=== PATIENT | female | born 1975 | race Caucasian/White ===

== ENCOUNTER → 2021-06-09 13:16 | Outpatient (CLI) | payer BC, SELFPAY ==
--- NOTE | 2021-06-09 13:23 | BI_ITS ---
MAMMOGRAPHY - BILATERAL SCREENING REASON FOR EXAM: Female, 45 years old. Routine annual screening examination. PERTINENT HISTORY: Grandmother with breast cancer. TECHNIQUE: Digital bilateral breast alex (3D mammographic acquisition) in the CC and MLO projections. 2-D mediolateral oblique (MLO) and craniocaudad (CC) views of both breasts were obtained. CAD: Full Field Digital Mammography with Computer Added Detection was performed. COMPARISON: Comparison is made with prior outside study dated 07/05/2020. FINDINGS: Breast Composition: There are scattered areas of fibroglandular density. There are no dominant masses or suspicious calcifications. Stable 1.6 cm x 0.6 cm linear nodular density in the deep central medial aspect of the right breast. Correlation with ultrasound is recommended. No other significant abnormalities are identified. BI/SCRN MAMM (CAD)W/ALEX BILAT IMPRESSION: 1.6 cm x 0.6 cm linear nodular density in the deep central and medial aspect of the right breast. Correlation with ultrasound is recommended. ASSESSMENT CATEGORY: BIRADS Category 0: Incomplete. Need additional imaging evaluation. A letter regarding these results will be sent to the patient by the facility within 30 days. Approximately 10% of breast cancers are not detected by mammography. A normal mammogram should not delay biopsy of a clinically suspicious abnormality. [id number] Electronically Signed: Julio Perez MD at 15:02 EST , Service support ,
== END ==
PROVIDERS: PCP Family Medicine
DX: Z12.31 Encounter for screening mammogram for malignant neoplasm of breast (principal)
CPT/HCPCS: 77063; 77067

== ENCOUNTER → 2021-06-28 15:04 | Outpatient (CLI) | payer BC, SELFPAY ==
--- NOTE | 2021-06-28 15:07 | US_ITS ---
STUDY: ULTRASOUND BREAST - RIGHT REASON FOR EXAM: Female, 45 years old. Abnormal screening mammogram. TECHNIQUE: Axial and longitudinal images of the RIGHT breast were performed with a high resolution ultrasound transducer. # OF IMAGES: 25 COMPARISON: Comparison is made with prior mammogram dated 06/09/2021. FINDINGS: RIGHT Breast: There is a 7 mm x 13 mm x 5 mm hypoechoic solid nodule at the 2 o''clock position of the breast at 10 cm from nipple. Biopsy is recommended. Dilated retroareolar duct. US/Breast Limited Unilateral IMPRESSION: 7 mm x 15 mm x 5 mm hypoechoic nodule at the 2 o''clock position in the breast at 10 cm from nipple. Biopsy is recommended. Dilated retroareolar duct. ASSESSMENT CATEGORY: BIRADS Category 4: Suspicious - Biopsy Should Be Considered. A letter regarding these results will be sent to the patient by the facility within 30 days. Electronically Signed: Julio Perez MD at 15:10 EST , Service support ,
== END ==
PROVIDERS: PCP Family Medicine
DX: R92.8 Other abnormal and inconclusive findings on diagnostic imaging of breast (principal)
CPT/HCPCS: 76642

== ENCOUNTER → 2021-07-12 10:29 | Outpatient (CLI) | payer BC, SELFPAY ==
--- NOTE | 2021-07-12 | BRBX_PTH ---
PATIENT: DAVY REED LOC: [facility]#:[id number] AGE/SX: 49/F ROOM: RE07/12/[address]: Dr. Yakelin Bergeron MD : 1975 BED: DIS: SPEC #: [id number] RECD: 07/12/21 13:08 STATUS: KEISHA RYDER #: [id number] POOL: 07/12/21 00:[address]: Yakelin Bergeron DEPT: SURGICAL PATHOLOGY RECD BY: Panchito Bauman ENTERED: 07/12/21 13:09 SP TYPE: BREAST BX OTHR DR: Dr. Frederick Griffin MD Tissues: Right breast, NOS Procedures: Surgery Specimen Level IV HEADER OPERATION: Right breast biopsy PRE-OP DIAGNOSIS: Right breast lesion TISSUE SUBMITTED: Right breast 2 o?clock, 10 cm from nipple MICROSCOPIC DIAGNOSIS Right breast at 2 o?clock, biopsy: Fibroadenoma. AM:cristopher 07/13/2021 MICROSCOPIC DESCRIPTION Slides are reviewed. GROSS DESCRIPTION Received in fixative is one container labeled with the patient's name and designated right breast lesion. The specimen consists of multiple irregular fragments of light shepard-yellow tissue that in aggregate measure 2.5 x 1.5 x 0.2 cm. The specimen is totally submitted in one cassette. / AM:cristopher 07/12/21 TC:5 CPT: 02021
--- NOTE | 2021-07-12 10:30 | US_ITS ---
ULTRASOUND GUIDED CORE BIOPSY REASON FOR EXAM: Female, 45 years old. Abnormal breast us COMPARISON: Comparison is made with prior sonogram of the right breast dated 06/28/2021. TECHNIQUE: (All elements of maximal sterile barrier technique followed, including US elements as applicable) Under direct sonographic guidance, the surgeon performed core biopsies of the 7 mm x 10 mm x 5 mm hypoechoic solid nodule at the 2 o''clock position of the breast at 10 cm from nipple. US/US Breast Biopsy 1st Lesion IMPRESSION: Ultrasound guided core biopsy of a mass in the RIGHT breast at 2 o''clock position of the breast at 10 cm from the nipple without complication. Electronically Signed: Julio Perez MD at 12:25 EST , Service support ,
--- NOTE | 2021-07-12 11:25 | PCM.OPRPT ---
Report of Operation Date of Procedure: 07/12/21 Pre-Operative Diagnosis: Right breast mass Post-Operative Diagnosis: Same Surgery/Procedure Performed:: Right breast ultrasound-guided biopsy Surgeon: Yakelin Bergeron Specimen's removed: Right breast mass 2:00 10 cm from the nipple Estimated Blood Loss (mL): Minimal Description of Procedure: Procedure: Right ultrasound-guided core biopsy Indications: 45 year-old female with the hypoechoic solid nodule at 2:00 in the right breast 10 cm from the nipple. Risk benefits were discussed the patient and she elected to proceed with ultrasound guided core biopsy with clip placement Description of procedure: Patient was brought into the ultrasound room in the right breast was marked. A timeout was completed verifying correct patient, procedure, site, specially, prior to beginning procedure. The right breast was prepped and draped in usual sterile fashion and using local anesthesia was obtained with 1% lidocaine with epi. The lesion was located with the ultrasound. Small incision was made with 11 blade to introduced the mammotome through the skin. Under ultrasound guidance multiple core samples were obtained using then 13-gauge mammotome and sent in formalin for pathology. The mammotome mammostar clip was then deployed into the biopsy cavity under ultrasound guidance and a picture was taken. Upon completion procedure hemostasis was obtained and a Steri-Strip and OpSite were placed. Patient was then taken to the mammography suite for clip verification. The clip was verified. The patient tolerated the procedure well and was discharged from the breast imaging department good condition. Complications none
== END ==
PROVIDERS: PCP Family Medicine; Referring Provider Surgery; Visit Provider Surgery
DX: N63.10 Unspecified lump in the right breast, unspecified quadrant (principal)
CPT/HCPCS: 19083; 88305

== ENCOUNTER 2021-08-24 09:48 | Outpatient (CLI) | payer BC, SELFPAY ==
[2021-08-29 21:48] LABS: HPV APTIMA, High Risk Negative (Negative)
== END 2021-08-24 23:59 | disposition short-term general hospital (02) ==
LOC: LABSPEC 08-25 09:49
PROVIDERS: PCP Family Medicine; Visit Provider Nurse Practitioner Women's Health
DX: Z01.419 Encounter for gynecological examination (general) (routine) without abnormal findings (principal)
CPT/HCPCS: 87624; 88175; G0145

== ENCOUNTER → 2022-09-13 | Outpatient (CLI) | payer BC, SELFPAY ==
--- NOTE | 2022-09-13 14:35 | BI_ITS ---
MAMMOGRAPHY - BILATERAL SCREENING REASON FOR EXAM: Female, 47 years old. Routine annual screening examination. PERTINENT HISTORY: Grandmother with breast cancer. Prior right ultrasound guided breast biopsy. TECHNIQUE: Digital bilateral breast alex (3D mammographic acquisition) in the CC and MLO projections. 2-D mediolateral oblique (MLO) and craniocaudad (CC) views of both breasts were obtained. CAD: Full Field Digital Mammography with Computer Added Detection was performed. COMPARISON: Comparison is made with prior study 06/09/2021. FINDINGS: Breast Composition: There are scattered areas of fibroglandular density. There are no dominant masses or suspicious calcifications. Stable asymmetry of breast tissue or minimal breast tissue is seen in the upper outer quadrant of the right breast as compared to the left side. Stable 1.6 cm x 0.6 cm linear nodular density in the deep central medial aspect of the right breast. A tissue clip marker is seen within. No other significant abnormalities are identified. There has been no significant change since the prior study. BI/SCRN MAMM (CAD)W/ALEX BILAT IMPRESSION: Stable bilateral screening mammogram. Yearly follow-up mammogram recommended. (A) ASSESSMENT CATEGORY: BIRADS Category 2: Benign. A letter regarding these results will be sent to the patient by the facility within 30 days. Approximately 10% of breast cancers are not detected by mammography. A normal mammogram should not delay biopsy of a clinically suspicious abnormality. [id number] Electronically Signed: Julio Perez MD at 15:26 EST ,
== END | disposition home or self-care (01) ==
PROVIDERS: PCP Family Medicine; Referring Provider Nurse Practitioner Women's Health; Visit Provider Nurse Practitioner Women's Health
DX: Z12.31 Encounter for screening mammogram for malignant neoplasm of breast (principal)
CPT/HCPCS: 77063; 77067

== ENCOUNTER → 2023-12-17 | Outpatient (CLI) | payer BC, SELFPAY ==
--- NOTE | 2023-12-17 14:08 | BI_ITS ---
MAMMOGRAPHY - BILATERAL SCREENING 3-D TOMOSYNTHESIS REASON FOR EXAM: Female, 48 years old. SCREENING PERTINENT HISTORY: No significant family history. TECHNIQUE: 2-D mammograms and 3-D Tomosynthesis of the breast (s) were performed. CAD was performed. COMPARISON: 10/11/2022 FINDINGS: The breast composition is composed of scattered fibroglandular density. Scattered benign calcifications are seen. No dense spiculated masses or suspicious microcalcifications are identified. No architectural distortion is identified. There is no skin thickening or retraction. There has been no significant change since the prior study. BI/SCRN MAMM (CAD)W/LAEX BILAT IMPRESSION: No mammographic signs of malignancy. Routine yearly mammograms recommended. ASSESSMENT CATEGORY: BIRADS Category 1: Negative. A letter regarding these results will be sent to the patient by the facility within 30 days. FOLLOW UP RECOMMENDATION: Yearly follow up mammogram recommended. (A) Approximately 10% of breast cancers are not detected by mammography. A normal mammogram should not delay biopsy of a clinically suspicious abnormality. Electronically Signed: Aaron Dos Santos MD at 16:04 EDT ,
== END | disposition home or self-care (01) ==
LOC: OPBI 14:06
DX: Z12.31 Encounter for screening mammogram for malignant neoplasm of breast (principal)
CPT/HCPCS: 77063; 77067

== ENCOUNTER → 2024-12-23 | Outpatient (CLI) | payer BC, SELFPAY ==
--- NOTE | 2024-12-23 14:24 | BI_ITS ---
EXAM: SCRN MAMM (CAD)W/ALEX BILAT DATE: 12/23/2024 CLINICAL HISTORY: F, Age 49 y/o , SCREENING BREAST CANCER RISK ASSESSMENT: Not reported TECHNIQUE: Bilateral screening digital breast tomosynthesis with 2D and 3D images. Computer aided detection. COMPARISON: None FINDINGS: TISSUE DENSITY: The breast tissue is heterogenously dense, which may obscure small masses. Bilateral Breast Mammographic Findings: Right: There are 2 massess in the upper outer right breast Left: no suspicious masses, calcifications or other abnormalities are identified. BI/SCRN MAMM (CAD)W/ALEX BILAT IMPRESSION: OVERALL FINAL ASSESSMENT: BIRADS 0 Incomplete: Need additional imaging evaluati on and/or prior mammograms for comparison. RECOMMENDATION: Incomplete: Need additional imaging evaluation with diagnostic right breast nanette mogram and ultrasound . A letter with findings and recommendations will be mailed to the patient. Reading Location: [id number]
--- NOTE | 2024-12-23 14:26 | BD_ITS ---
PROCEDURE: DEXA BONE DENSITY STUDY 12/23/2024 REASON FOR EXAM: F, age 49 y/o . Postmenopausal. TECHNIQUE: DXA scan of sites with data reported below. REFERENCE LINKS: [facility] Adult Positions COMPARISON: None FINDINGS: BMD and T-SCORES Lumbar spine: 0.901 g/cm2, T-score -1.4 Levels: L1 through L4 Left femoral neck: 0.802 g/cm2, T-score -0.4 Femoral neck comparison data not recommended for monitoring change. Left total hip: 0.938 g/cm2, T-score 0.0 Right femoral neck: 0.833 g/cm2, T-score -0.1 Femoral neck comparison data not recommended for monitoring change. Right total hip: 0.944 g/cm2, T-score 0.0 The World Health Organization has defined the following categories based on bone density: Normal bone density: T-score equal to or greater than -1.0 Osteopenia: T-score between -1.0 and -2.5 Osteoporosis: T-score equal to or less than -2.5 (The patient does meet the pharmacological treatment recommendations for prevention of osteoporosis. BD/Dexa Bone Density Study IMPRESSION: OSTEOPENIA. Recommend follow-up as clinically warranted. Reading Location: [place] [id number]
== END | disposition home or self-care (01) ==
LOC: OPBD 14:22
PROVIDERS: PCP Nurse Practitioner Family; Referring Provider Obstetrics & Gynecology Gynecology; Visit Provider Obstetrics & Gynecology Gynecology
DX: Z12.31 Encounter for screening mammogram for malignant neoplasm of breast (principal); Z78.0 Asymptomatic menopausal state; Z13.820 Encounter for screening for osteoporosis
CPT/HCPCS: 77063; 77067; 77080